=== PATIENT | female | born 1980 | race Caucasian/White ===

== ENCOUNTER 2021-09-19 18:36 | Emergency (ER) | payer OTHER ==
[~2021-09-19] VITALS: Ht 170.2 cm; Wt 117.9 kg
[2021-09-19 18:54] VITALS: BP 134/86
--- NOTE | 2021-09-19 18:58 | NUR ---
PT TO AWAIT IN LOBBY
--- NOTE | 2021-09-19 19:42 | NUR ---
PT AMBULATED TO ER BED 03 W/O ASSISTANCE
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
--- NOTE | 2021-09-19 20:15 | NUR ---
TAKEN TO XRAY
[2021-09-19] MEDS ORDERED: CYCL-711 PO (20:58)
[2021-09-19] MEDS ORDERED: NAPR-54 PO (20:58)
[2021-09-19 21:57] VITALS: BP 134/86
--- NOTE | 2021-09-19 21:57 | NUR ---
Patient discharged with v/s stable. Written and verbal after care instructions given and explained. Patient alert, oriented and verbalized understanding of instructions. Ambulatory with steady gait. All questions addressed prior to discharge. ID band removed. Patient advised to follow up with PMD. Rx of FLEXERIL AND NAPROSYN given. Patient educated on indication of medication including possible reaction and side effects. Opportunity to ask questions provided and answered.
== END 2021-09-19 21:57 | disposition home or self-care (01) ==
LOC: MED 18:36
DX: S93.401A Sprain of unspecified ligament of right ankle, initial encounter (principal); S16.1XXA Strain of muscle, fascia and tendon at neck level, initial encounter; S50.12XA Contusion of left forearm, initial encounter; V98.8XXA Other specified transport accidents, initial encounter; Y93.89 Activity, other specified; Y92.89 Other specified places as the place of occurrence of the external cause; Y99.8 Other external cause status
CPT/HCPCS: 29515; 71045; 72040; 73090; 99284